=== PATIENT | male | born 1945 | race Caucasian/White ===

== ENCOUNTER 2017-10-19 14:55 | Emergency (ER) | payer MEDICARE, OTHER ==
[2017-10-19] MEDS ORDERED: Nitroglycerin 2% Ointment 1 INCH/1 GM Packet ONE (15:21)
[2017-10-19] MEDS ORDERED: Furosemide 40 MG/4 ML VIAL ONE (15:21)
[2017-10-19 15:29] LABS: Hemoglobin 9.8 g/dL (14.0-18.0); Mean Corpuscular HGB CONC 32.6 g/dL (32.0-36.0); Mean Corpuscular Hemoglobin 28.7 pg (27.0-31.0); Mean Corpuscular Volume 87.8 fL (78.0-98.0); Mean Platelet Volume 7.8 fL (7.4-10.4); Platelet Count 240 thou/uL (130-400); RBC Distribution Width 13.1 % (11.5-14.5); Red Blood Cell (RBC) Count 3.41 mill/uL (4.70-6.10); White Blood Cell (WBC) Count 5.7 thou/uL (4.8-10.8)
[2017-10-19 15:46] LABS: Band 4 % (5-11); Eosinophils 7 % (0-10); Lymphocytes 26 % (21-51); MDiff Complete? YES; Monocytes 8 % (0-10); Neutrophil 53 % (42-75); Ovalocytes SLIGHT = 2-5 cells (100X) (0-1/hpf); PLT Morphology Comment Appears Adequate; Polychromasia SLIGHT = 2-3 cells (100X) (0-2/hpf); Reactive Lymphocytes 1 % (0-10)
[2017-10-19 15:52] LABS: ALT (SGPT) 18 U/L (8-55); AST (SGOT) 24 U/L (5-34); Albumin 3.9 g/dL (3.4-4.8); Alkaline Phosphatase 99 U/L (40-150); Anion Gap 10 mmol/L (10-20); BUN (Urea Nitrogen) 15 mg/dL (8.4-25.7); Bilirubin, Total 0.5 mg/dL (0.2-1.2); CK (CPK) 38 U/L (30-200); Calc. Creatinine Clearance 0 mL/min (70-130); Calcium 9.6 mg/dL (7.8-10.44); Carbon Dioxide 31 mmol/L (23-31); Chloride 99 mmol/L (98-107); Estimated GFR-MDRD 77; Globulin 3.5 g/dL (2.4-3.5); Glucose 130 mg/dL (83-110); Lipase 77 U/L (8-78); Potassium 4.2 mmol/L (3.5-5.1); Protein, Total 7.4 g/dL (5.8-8.1); Sodium 136 mmol/L (136-145)
[2017-10-19 15:54] LABS: CKMB 1.2 ng/mL (0-6.6); Troponin I Less than 0.010 ng/mL (< 0.028)
--- NOTE | 2017-10-19 15:59 | RAD ---
PORTABLE CHEST: Date: 10/19/17 HISTORY: Dyspnea. No comparison. IMPRESSION: Mild cardiomegaly. Bibasilar infiltrates and evidence of small bilateral effusions. Mild vascular eng orgement. POS: [facility]
== END 2017-10-19 19:52 ==
LOC: ERS 14:55
DX: I11.0 Hypertensive heart disease with heart failure (principal); I50.9 Heart failure, unspecified; E78.00 Pure hypercholesterolemia, unspecified; E11.9 Type 2 diabetes mellitus without complications; I48.91 Unspecified atrial fibrillation; F32.9 Major depressive disorder, single episode, unspecified
CPT/HCPCS: 71045; 80053; 82553; 83690; 83880; 84484; 85025; 93005; 96374; J1940

== ENCOUNTER 2023-11-19 02:49 | Emergency (ER) | payer OTHER ==
[2023-11-19 03:43] LABS: #Basophils Less than 0.03 10x3/uL (0.0-0.2); %Basophils 0.3 % (0.0-1.0); %Eosinophils 3.7 % (0.0-10.0); %Lymphocytes 14.8 % (21.0-51.0); %Neutrophils 69.1 % (42.0-75.0); Hematocrit 31.9 % (42.0-52.0); Hemoglobin 10.5 g/dL (14.0-18.0); Mean Corpuscular HGB CONC 32.9 g/dL (32.0-36.0); Mean Corpuscular Hemoglobin 31.3 pg (27.0-31.0); Mean Corpuscular Volume 94.9 fL (78.0-98.0); Mean Platelet Volume 10.2 fL (7.4-10.4); Platelet Count 305 10x3/uL (130-400); RBC Distribution Width 14.4 % (11.5-14.5); Red Blood Cell (RBC) Count 3.36 mill/uL (4.70-6.10)
[2023-11-19 04:00] LABS: ALT (SGPT) 116 U/L (8-55); AST (SGOT) 37 U/L (5-34); Albumin 3.1 g/dL (3.4-4.8); Alkaline Phosphatase 207 U/L (40-110); Anion Gap 13 mmol/L (10-20); BUN (Urea Nitrogen) 18 mg/dL (8.4-25.7); Calc. Creatinine Clearance 0 mL/min (70-130); Calcium 9.4 mg/dL (7.8-10.44); Carbon Dioxide 27 mmol/L (23-31); Chloride 97 mmol/L (98-107); Estimated GFR 93; Globulin 3.8 g/dL (2.4-3.5); Glucose 183 mg/dL (83-110); Protein, Total 6.9 g/dL (5.8-8.1); Sodium 133 mmol/L (136-145)
== END 2023-11-19 07:09 | disposition home or self-care (01) ==
LOC: ERS 02:49
DX: R06.00 Dyspnea, unspecified (principal); E11.9 Type 2 diabetes mellitus without complications; I10 Essential (primary) hypertension; I48.91 Unspecified atrial fibrillation; I62.9 Nontraumatic intracranial hemorrhage, unspecified; Z55.6 Problems related to health literacy
CPT/HCPCS: 71045; 80053; 83880; 85025; 93005

== ENCOUNTER 2024-04-20 10:45 | Inpatient (IN) | payer OTHER ==
[2024-04-20 11:26] LABS: Acetaminophen Less than 10 mcg/mL (Less than 10); Alcohol Less than 10.0 mg/dL (Less than 10); Salicylate Less than 8.0 mg/dL (Less than 8.0)
[2024-04-20 11:30] LABS: #Basophils Less than 0.03 10x3/uL (0.0-0.2); %Basophils 0.3 % (0.0-1.0); %Eosinophils 1.9 % (0.0-10.0); %Lymphocytes 17.9 % (21.0-51.0); %Monocytes 13.9 % (0.0-10.0); %Neutrophils 65.6 % (42.0-75.0); Hematocrit 46.5 % (42.0-52.0); Hemoglobin 15.6 g/dL (14.0-18.0); Mean Corpuscular HGB CONC 33.5 g/dL (32.0-36.0); Mean Corpuscular Hemoglobin 30.8 pg (27.0-31.0); Mean Corpuscular Volume 91.7 fL (78.0-98.0); Mean Platelet Volume 10.6 fL (7.4-10.4); Platelet Count 236 10x3/uL (130-400); RBC Distribution Width 15.3 % (11.5-14.5); Red Blood Cell (RBC) Count 5.07 mill/uL (4.70-6.10)
[2024-04-20 11:56] LABS: ALT (SGPT) 17 U/L (8-55); AST (SGOT) 26 U/L (5-34); Albumin 4.1 g/dL (3.4-4.8); Anion Gap 19 mmol/L (10-20); BUN (Urea Nitrogen) 31 mg/dL (8.4-25.7); Bilirubin, Total 0.7 mg/dL (0.2-1.2); Calc. Creatinine Clearance 0 mL/min (70-130); Calcium 10.1 mg/dL (7.8-10.44); Carbon Dioxide 24 mmol/L (23-31); Chloride 97 mmol/L (98-107); Estimated GFR 65; Globulin 4.1 g/dL (2.4-3.5); Glucose 139 mg/dL (83-110); Magnesium 1.7 mg/dL (1.6-2.6); Potassium 4.8 mmol/L (3.5-5.1); Protein, Total 8.2 g/dL (5.8-8.1); Sodium 135 mmol/L (136-145)
[2024-04-20 12:00] LABS: Troponin I 0.016 ng/mL (< 0.028)
[2024-04-20 12:41] LABS: Bacteria/HPF None Seen HPF (None Seen); Bilirubin Negative (Negative); Blood, Urine Negative (Negative); CAUTI Indications for Culture Alt mental st,lethar; Clarity Clear (Clear); Glucose, Urine (Dipstick) Normal (Negative); Ketone, Urine Negative (Negative); Leukocyte Negative Leu/uL (Negative); Nitrite Negative (Negative); Protein, Urine (Dipstick) Negative (Neg-Trace); RBC/HPF None Seen HPF (0-3); Squamous Epithelial None Seen HPF (0-3); Urobilinogen Normal mg/dL (Less than 2); WBC/HPF 0-3 HPF (0-3); pH, Urine 6.5 (5.0-9.0)
[2024-04-20 12:44] LABS: Urine Culture Reflex No No
[2024-04-20 12:48] LABS: Amphetamine Not Detected (NotDetected); Barbiturates Screen Not Detected (NotDetected); Benzodiazepine Screen Not Detected (NotDetected); Cocaine Metabolite Screen Not Detected (NotDetected); Methadone Not Detected (NotDetected); Methamphetamine Not Detected (NotDetected); Opiate Screen Not Detected (NotDetected); Oxycodone Screen Not Detected (NotDetected); Phencyclidine (PCP) Not Detected (NotDetected); THC/Cannabinoid Screen Not Detected (NotDetected); Tricyclic Screen Not Detected (NotDetected)
[2024-04-20 12:52] LABS: Alkaline Phosphatase 125 U/L (40-110)
[2024-04-20] MEDS ORDERED: Aspirin Chewable 81 MG TAB ONE (13:57)
[2024-04-20] MEDS ORDERED: Ondansetron ODT 4 MG TAB PO PRN (14:36)
[2024-04-20] MEDS ORDERED: Ondansetron PF 4 MG/2 ML Vial IVP PRN (14:36)
[2024-04-20] MEDS ORDERED: Senokot S 8.6-50 MG TAB PO PRN (14:36)
[2024-04-20] MEDS ORDERED: hydrALAZINE 20 MG/ML VIAL SLOW IVP PRN (14:36)
[2024-04-20] MEDS ORDERED: Acetaminophen 650 MG Suppository PR PRN (14:36)
[2024-04-20] MEDS ORDERED: Calcium Carbonate 500 MG ChewTAB PO PRN (14:36)
[2024-04-20] MEDS ORDERED: Haloperidol Lactate 5 MG/ML VIAL ONE (15:11)
[2024-04-20 17:41] VITALS: BMI 18.6
[2024-04-20] MEDS: QUEtiapine 25 MG TAB PO SCH (21:21)
[2024-04-20] MEDS: Haloperidol Lactate 5 MG/ML VIAL IM SCH (22:57)
[2024-04-21] MEDS: Haloperidol Lactate 5 MG/ML VIAL SLOW IVP SCH (00:43)
[2024-04-21 08:19] LABS: #Basophils Less than 0.03 10x3/uL (0.0-0.2); %Basophils 0.3 % (0.0-1.0); %Eosinophils 1.7 % (0.0-10.0); %Lymphocytes 19.6 % (21.0-51.0); %Monocytes 12.1 % (0.0-10.0); %Neutrophils 65.9 % (42.0-75.0); Hematocrit 40.6 % (42.0-52.0); Hemoglobin 13.8 g/dL (14.0-18.0); Mean Corpuscular Hemoglobin 30.3 pg (27.0-31.0); Mean Corpuscular Volume 89.2 fL (78.0-98.0); Mean Platelet Volume 10.3 fL (7.4-10.4); Platelet Count 232 10x3/uL (130-400); RBC Distribution Width 14.8 % (11.5-14.5); Red Blood Cell (RBC) Count 4.55 mill/uL (4.70-6.10)
[2024-04-21 08:37] LABS: Anion Gap 13 mmol/L (10-20); BUN (Urea Nitrogen) 22 mg/dL (8.4-25.7); Calc. Creatinine Clearance 61 mL/min (70-130); Calcium 9.1 mg/dL (7.8-10.44); Carbon Dioxide 27 mmol/L (23-31); Chloride 100 mmol/L (98-107); Estimated GFR 90; Glucose 127 mg/dL (83-110); Potassium 3.8 mmol/L (3.5-5.1); Sodium 136 mmol/L (136-145)
[2024-04-21] MEDS: Pantoprazole 40 MG DR.TAB PO SCH (11:03)
[2024-04-21] MEDS: Atorvastatin Calcium 40 MG TAB PO SCH (11:03)
[2024-04-21] MEDS: Oxybutynin ER 5 MG TAB PO SCH (11:03)
[2024-04-21] MEDS: Aspirin 81 mg Enteric Coated Tablet PO SCH (11:03)
[2024-04-21] MEDS: Clopidogrel Bisulfate 75 MG TAB PO SCH (11:03)
[2024-04-21] MEDS: Gabapentin 100 MG CAP PO SCH ×2 (11:04→19:46)
[2024-04-21] MEDS: NIFEdipine XL 30 MG ER.TAB PO SCH (11:45)
[2024-04-21] MEDS: hydrALAZINE 25 MG TAB PO SCH (11:45)
[2024-04-21] MEDS: Lisinopril 20 MG TAB PO SCH (11:45)
[2024-04-21 12:04] VITALS: BMI 18.6
[2024-04-21] MEDS: Ciprofloxacin 0.3% Ophth Soln 2.5 ml Bottle EA EYE SCH (15:33)
[2024-04-21] MEDS: Melatonin 3 MG TAB PO SCH (19:45)
[2024-04-22 11:35] LABS: Vitamin D, 25 Hydroxy 29.9 ng/ml (> 30.0)
[2024-04-23 05:32] LABS: Anion Gap 13 mmol/L (10-20); BUN (Urea Nitrogen) 27 mg/dL (8.4-25.7); Calc. Creatinine Clearance 57 mL/min (70-130); Calcium 9.1 mg/dL (7.8-10.44); Carbon Dioxide 26 mmol/L (23-31); Chloride 100 mmol/L (98-107); Estimated GFR 87; Glucose 124 mg/dL (83-110); Magnesium 1.4 mg/dL (1.6-2.6); Potassium 3.9 mmol/L (3.5-5.1); Sodium 135 mmol/L (136-145)
[2024-04-23] MEDS: ALPRAZolam 0.25 MG TAB PO PRN (12:04)
[2024-04-24] MEDS: Acetaminophen 500 MG TAB PO PRN (08:31)
[2024-04-24] MEDS: ALPRAZolam 0.25 MG TAB PO SCH (10:32)
[2024-04-26] MEDS: Acetaminophen 325 MG TAB PO PRN (08:50)
[2024-04-28 15:56] VITALS: BP 121/65
[2024-04-28 16:34] VITALS: TEMP 97.2
== END 2024-04-28 18:19 | disposition home health service (06) | DRG 71 ==
LOC: ERS 10:45 → ERHOLD 14:57 → 2SE 16:46 → OBSVTOIN 04-21 15:49 → MSONC 04-25 12:14
PROVIDERS: ADMIT Internal Medicine; ATTEND Internal Medicine
DX: G93.41 Metabolic encephalopathy (principal); I48.20 Chronic atrial fibrillation, unspecified; I50.32 Chronic diastolic (congestive) heart failure; E78.5 Hyperlipidemia, unspecified; E11.9 Type 2 diabetes mellitus without complications; I11.0 Hypertensive heart disease with heart failure; E86.0 Dehydration; Z79.82 Long term (current) use of aspirin; Z79.899 Other long term (current) drug therapy; H01.009 Unspecified blepharitis unspecified eye, unspecified eyelid; Z98.890 Other specified postprocedural states
CPT/HCPCS: 36415; 36416; 70450; 70551; 71045; 80048; 80053; 80306; 80307; 81001; 82140; 82306; 82607; 83605; 83735; 84443; 84484; 85025; 93005; 93010; 96361; 96372; 96374; G0378; J1630

== ENCOUNTER 2024-04-29 18:28 | Inpatient (IN) | payer OTHER ==
[2024-04-29 20:01] LABS: #Basophils 0.03 10x3/uL (0.0-0.2); %Basophils 0.2 % (0.0-1.0); %Eosinophils 0.7 % (0.0-10.0); %Lymphocytes 9.5 % (21.0-51.0); %Monocytes 10.5 % (0.0-10.0); %Neutrophils 78.5 % (42.0-75.0); Hematocrit 36.8 % (42.0-52.0); Hemoglobin 12.2 g/dL (14.0-18.0); Mean Corpuscular HGB CONC 33.2 g/dL (32.0-36.0); Mean Corpuscular Hemoglobin 30.7 pg (27.0-31.0); Mean Corpuscular Volume 92.5 fL (78.0-98.0); Mean Platelet Volume 10.3 fL (7.4-10.4); Platelet Count 269 10x3/uL (130-400); RBC Distribution Width 14.7 % (11.5-14.5); Red Blood Cell (RBC) Count 3.98 mill/uL (4.70-6.10)
[2024-04-29 20:19] LABS: INR-International Normal Ratio 1.1; PTT 27.9 sec (22.9-36.1); Prothrombin Time 14.5 sec (12.0-14.7)
[2024-04-29 20:24] LABS: ALT (SGPT) 25 U/L (8-55); AST (SGOT) 30 U/L (5-34); Albumin 3.6 g/dL (3.4-4.8); Alkaline Phosphatase 104 U/L (40-110); Anion Gap 16 mmol/L (10-20); BUN (Urea Nitrogen) 36 mg/dL (8.4-25.7); Bilirubin, Total 0.5 mg/dL (0.2-1.2); CK (CPK) 65 U/L (30-200); Calc. Creatinine Clearance 0 mL/min (70-130); Carbon Dioxide 24 mmol/L (23-31); Chloride 97 mmol/L (98-107); Estimated GFR 92; Globulin 3.5 g/dL (2.4-3.5); Glucose 183 mg/dL (83-110); Magnesium 1.4 mg/dL (1.6-2.6); Potassium 3.9 mmol/L (3.5-5.1); Protein, Total 7.1 g/dL (5.8-8.1); Sodium 133 mmol/L (136-145)
[2024-04-29] MEDS ORDERED: niCARdipine 25 MG/10 ML SDV ONE (21:03)
[2024-04-29] MEDS ORDERED: levETIRAcetam 500 MG (5 mL) VIAL ONE (21:03)
[2024-04-29] MEDS ORDERED: Acetaminophen 500 MG TAB ONE (21:46)
[2024-04-29] MEDS ORDERED: Ondansetron PF 4 MG/2 ML Vial IVP PRN (22:00)
[2024-04-29] MEDS ORDERED: Acetaminophen 325 MG TAB PO PRN (22:00)
[2024-04-29] MEDS ORDERED: Ondansetron ODT 4 MG TAB SL PRN (22:00)
[2024-04-29] MEDS ORDERED: Dextrose 5% in Water 1,000 ML IV PRN (22:14)
[2024-04-29] MEDS ORDERED: Glucagon 1 MG/ML KIT IM PRN (22:14)
[2024-04-29] MEDS ORDERED: Dextrose 50% Abboject 50 ML SYRINGE SLOW IVP PRN (22:14)
[2024-04-29 23:27] VITALS: BMI 19.8
[2024-04-30 02:49] LABS: #Basophils Less than 0.03 10x3/uL (0.0-0.2); #Eosinophils Less than 0.03 10x3/uL (0.0-0.7); %Basophils 0.2 % (0.0-1.0); %Eosinophils 0.2 % (0.0-10.0); %Lymphocytes 9.9 % (21.0-51.0); %Monocytes 9.7 % (0.0-10.0); %Neutrophils 79.5 % (42.0-75.0); Hematocrit 31.2 % (42.0-52.0); Hemoglobin 10.4 g/dL (14.0-18.0); Mean Corpuscular HGB CONC 33.3 g/dL (32.0-36.0); Mean Corpuscular Hemoglobin 30.9 pg (27.0-31.0); Mean Corpuscular Volume 92.6 fL (78.0-98.0); Mean Platelet Volume 10.1 fL (7.4-10.4); Platelet Count 260 10x3/uL (130-400); RBC Distribution Width 14.8 % (11.5-14.5); Red Blood Cell (RBC) Count 3.37 mill/uL (4.70-6.10)
[2024-04-30 03:38] LABS: Anion Gap 11 mmol/L (10-20); BUN (Urea Nitrogen) 32 mg/dL (8.4-25.7); Calc. Creatinine Clearance 74 mL/min (70-130); Calcium 8.7 mg/dL (7.8-10.44); Carbon Dioxide 26 mmol/L (23-31); Chloride 100 mmol/L (98-107); Estimated GFR 93; Glucose 153 mg/dL (83-110); Potassium 4.3 mmol/L (3.5-5.1); Sodium 133 mmol/L (136-145)
[2024-04-30] MEDS: Famotidine/PF 20 mg/2ml Vial SLOW IVP SCH (09:11)
[2024-04-30] MEDS: levETIRAcetam 500 MG (5 mL) VIAL SLOW IVP SCH (09:11)
[2024-04-30] MEDS: hydrALAZINE 20 MG/ML VIAL SLOW IVP PRN (09:48)
[2024-04-30] MEDS: Lactated Ringer's 1,000 ML IV SCH (11:19)
[2024-04-30] MEDS: Labetalol HCl 100 MG/20 ML VIAL SLOW IVP PRN (15:10)
[2024-05-01] MEDS: niCARdipine 25 MG in Sodium Chloride 0.9% 250 ML 250 ML IVPB SCH ×2 (04:07→08:55)
[2024-05-01] MEDS: hydrALAZINE 20 MG/ML VIAL SLOW IVP PRN (14:51)
[2024-05-01] MEDS: Polyvinyl Alcohol 1.4%/Povidone 0.6% Opth Drops EA EYE SCH (20:32)
[2024-05-02] MEDS: Labetalol HCl 100 MG/20 ML VIAL SLOW IVP PRN (05:05)
[2024-05-02] MEDS: Insulin Lispro 100 UNIT/ML 10 ML VIAL SC PRN (08:20)
[2024-05-02] MEDS: NIFEdipine XL 30 MG ER.TAB PO SCH (08:25)
[2024-05-02] MEDS: Lisinopril 20 MG TAB PER TUBE SCH (08:25)
[2024-05-02] MEDS: hydrALAZINE 25 MG TAB PER TUBE SCH (08:25)
[2024-05-02 10:12] LABS: Hemoglobin A1c 5.8 % (4.0-6.0); Magnesium 1.5 mg/dL (1.6-2.6)
[2024-05-02] MEDS: Magnesium Sulfate In Water 4 GM in Premix 1 BAG IVPB SCH (11:00)
[2024-05-02 15:02] LABS: Bilirubin Negative (Negative); Blood, Urine Trace (Negative); CAUTI Indications for Culture Alt mental st,lethar; Clarity Clear (Clear); Glucose, Urine (Dipstick) 150 mg/dL (Negative); Ketone, Urine Negative (Negative); Leukocyte 75 Leu/uL (Negative); Nitrite Negative (Negative); Protein, Urine (Dipstick) 20 mg/dL (Neg-Trace); Specific Gravity, Urine 1.011 (1.002-1.036); Squamous Epithelial None Seen HPF (0-3); Urobilinogen Normal mg/dL (Less than 2); pH, Urine 7.5 (5.0-9.0)
[2024-05-02 15:03] LABS: Bacteria/HPF 1+ HPF (None Seen); Urine Culture Reflex No No
[2024-05-02] MEDS: Vancomycin 1.5 GRAM/300 ML BAG 1.5 GM in Premix 1 BAG IVPB SCH (20:34)
[2024-05-02] MEDS: Piperacillin/Tazobactam 3.375 GM in Sodium Chloride 0.9% 100 ML IVPB SCH (20:39)
[2024-05-02] MEDS: Piperacillin/Tazobactam 3.375 GM VIAL ONE (21:11)
[2024-05-02] MEDS: Atorvastatin Calcium 40 MG TAB PER TUBE SCH (21:20)
[2024-05-02 23:02] LABS: Actual Bicarbonate (HCO3v) 26.9 mEq/L (22-28); Base Excess 3.2 mEq/L (-2.0 to +3.0); Calcium, Ionized (venous) 1.19 mmol/L (1.16-1.32); Chloride (VBG) 103 mmol/L (98-106); Hematocrit-VBG 38 % (42.0-52.0); Hemoglobin (Hb) 12.8 g/dL (12.6-17.4); Potassium (VBG) 3.86 mmol/L (3.70-5.30); Sodium 143 mmol/L (133-146); pH (venous) 7.469 (7.32-7.43)
[2024-05-03] MEDS: Piperacillin/Tazobactam 3.375 GM in Sodium Chloride 0.9% 100 ML IVPB SCH (00:37)
[2024-05-03] MEDS: Acetaminophen 325 MG TAB PER TUBE PRN (02:08)
[2024-05-03 04:10] LABS: #Basophils 0.03 10x3/uL (0.0-0.2); #Eosinophils Less than 0.03 10x3/uL (0.0-0.7); %Basophils 0.2 % (0.0-1.0); %Eosinophils 0.1 % (0.0-10.0); %Lymphocytes 7.6 % (21.0-51.0); %Monocytes 9.9 % (0.0-10.0); %Neutrophils 81.7 % (42.0-75.0); Hematocrit 31.7 % (42.0-52.0); Hemoglobin 10.7 g/dL (14.0-18.0); Mean Corpuscular HGB CONC 33.8 g/dL (32.0-36.0); Mean Corpuscular Hemoglobin 30.7 pg (27.0-31.0); Mean Corpuscular Volume 91.1 fL (78.0-98.0); Mean Platelet Volume 10.5 fL (7.4-10.4); Platelet Count 278 10x3/uL (130-400); RBC Distribution Width 15.4 % (11.5-14.5); Red Blood Cell (RBC) Count 3.48 mill/uL (4.70-6.10)
[2024-05-03 04:45] LABS: Vancomycin, Random 19.5 ug/mL (See Comment)
[2024-05-03 04:47] LABS: Anion Gap 13 mmol/L (10-20); BUN (Urea Nitrogen) 30 mg/dL (8.4-25.7); Calc. Creatinine Clearance 71 mL/min (70-130); Calcium 9.3 mg/dL (7.8-10.44); Carbon Dioxide 25 mmol/L (23-31); Chloride 110 mmol/L (98-107); Estimated GFR 93; Glucose 158 mg/dL (83-110); Magnesium 2.4 mg/dL (1.6-2.6); Potassium 3.8 mmol/L (3.5-5.1); Sodium 144 mmol/L (136-145)
[2024-05-03] MEDS: Vancomycin 1 GM in Premix 1 BAG IVPB SCH (05:57)
[2024-05-03] MEDS: Piperacillin/Tazobactam 3.375 GM VIAL ONE ×4 (09:23→22:53)
[2024-05-03] MEDS: Metoprolol Tartrate 5 MG (5 mL) VIAL IVP SCH (11:35)
[2024-05-03 15:11] VITALS: BMI 19.4
[2024-05-03] MEDS: Vancomycin HCl 750 MG in Sodium Chloride 0.9% 250 ML 250 ML IVPB SCH (17:26)
[2024-05-03] MEDS: Dextrose 5 %-0.45 % NaCl 1,000 ML IV SCH (19:56)
[2024-05-04 03:53] LABS: #Basophils 0.03 10x3/uL (0.0-0.2); %Basophils 0.3 % (0.0-1.0); %Eosinophils 0.8 % (0.0-10.0); %Lymphocytes 11.3 % (21.0-51.0); %Monocytes 10.5 % (0.0-10.0); %Neutrophils 76.6 % (42.0-75.0); Hematocrit 34.9 % (42.0-52.0); Hemoglobin 11.4 g/dL (14.0-18.0); Mean Corpuscular HGB CONC 32.7 g/dL (32.0-36.0); Mean Corpuscular Hemoglobin 30.6 pg (27.0-31.0); Mean Corpuscular Volume 93.8 fL (78.0-98.0); Mean Platelet Volume 10.5 fL (7.4-10.4); Platelet Count 291 10x3/uL (130-400); RBC Distribution Width 15.2 % (11.5-14.5); Red Blood Cell (RBC) Count 3.72 mill/uL (4.70-6.10)
[2024-05-04 04:20] LABS: Anion Gap 13 mmol/L (10-20); BUN (Urea Nitrogen) 23 mg/dL (8.4-25.7); Calc. Creatinine Clearance 78 mL/min (70-130); Calcium 9.1 mg/dL (7.8-10.44); Carbon Dioxide 26 mmol/L (23-31); Chloride 109 mmol/L (98-107); Estimated GFR 95; Glucose 152 mg/dL (83-110); Magnesium 1.8 mg/dL (1.6-2.6); Potassium 3.7 mmol/L (3.5-5.1); Sodium 144 mmol/L (136-145)
[2024-05-04] MEDS ORDERED: Lorazepam 2 MG/ML VIAL SLOW IVP PRN (10:29)
[2024-05-04] MEDS: Morphine 2 MG/ML VIAL SLOW IVP PRN (13:26)
[2024-05-05 04:27] LABS: #Basophils 0.04 10x3/uL (0.0-0.2); %Basophils 0.4 % (0.0-1.0); %Eosinophils 2.3 % (0.0-10.0); %Lymphocytes 11.4 % (21.0-51.0); %Monocytes 11.2 % (0.0-10.0); %Neutrophils 74.3 % (42.0-75.0); Hematocrit 36.1 % (42.0-52.0); Hemoglobin 11.7 g/dL (14.0-18.0); Mean Corpuscular HGB CONC 32.4 g/dL (32.0-36.0); Mean Corpuscular Hemoglobin 30.7 pg (27.0-31.0); Mean Corpuscular Volume 94.8 fL (78.0-98.0); Mean Platelet Volume 10.6 fL (7.4-10.4); Platelet Count 296 10x3/uL (130-400); RBC Distribution Width 14.9 % (11.5-14.5); Red Blood Cell (RBC) Count 3.81 mill/uL (4.70-6.10)
[2024-05-05 04:48] LABS: Anion Gap 12 mmol/L (10-20); BUN (Urea Nitrogen) 30 mg/dL (8.4-25.7); Calc. Creatinine Clearance 80 mL/min (70-130); Carbon Dioxide 26 mmol/L (23-31); Chloride 113 mmol/L (98-107); Estimated GFR 96; Glucose 106 mg/dL (83-110); Magnesium 1.8 mg/dL (1.6-2.6); Sodium 147 mmol/L (136-145)
[2024-05-05 04:53] LABS: Vancomycin, Random 18.1 ug/mL (See Comment)
[2024-05-05] MEDS: Vancomycin HCl 750 MG VIAL ONE (06:53)
[2024-05-05] MEDS: cloNIDine 0.1mg/24 Hour PATCH TD SCH (12:22)
[2024-05-05] MEDS: Polyvinyl Alcohol 1.4%/Povidone 0.6% Opth Drops EA EYE SCH (15:22)
[2024-05-05] MEDS: Famotidine/PF 20 mg/2ml Vial SLOW IVP SCH (20:47)
[2024-05-05 21:16] VITALS: TEMP 98.2
[2024-05-06 05:27] LABS: #Basophils 0.04 10x3/uL (0.0-0.2); %Basophils 0.4 % (0.0-1.0); %Eosinophils 4.2 % (0.0-10.0); %Lymphocytes 8.7 % (21.0-51.0); %Neutrophils 76.3 % (42.0-75.0); Hematocrit 37.5 % (42.0-52.0); Mean Corpuscular Hemoglobin 30.7 pg (27.0-31.0); Mean Corpuscular Volume 95.9 fL (78.0-98.0); Mean Platelet Volume 10.3 fL (7.4-10.4); Platelet Count 279 10x3/uL (130-400); RBC Distribution Width 14.7 % (11.5-14.5); Red Blood Cell (RBC) Count 3.91 mill/uL (4.70-6.10)
[2024-05-06 05:38] LABS: Anion Gap 11 mmol/L (10-20); BUN (Urea Nitrogen) 28 mg/dL (8.4-25.7); Calc. Creatinine Clearance 83 mL/min (70-130); Carbon Dioxide 27 mmol/L (23-31); Chloride 115 mmol/L (98-107); Estimated GFR 97; Glucose 124 mg/dL (83-110); Magnesium 1.8 mg/dL (1.6-2.6); Potassium 3.5 mmol/L (3.5-5.1); Sodium 149 mmol/L (136-145)
[2024-05-06] MEDS ORDERED: Morphine 2 MG/ML VIAL SLOW IVP SCH (09:45)
[2024-05-06 17:54] VITALS: BP 149/87
== END 2024-05-06 10:55 | disposition home or self-care (01) | DRG 82 ==
LOC: ERS 18:28 → UNDOADMIN 21:44 → CCU 21:44 → 2SE 05-02 16:30 → MSONC 05-05 16:03
PROVIDERS: ADMIT Surgery; ATTEND Surgery
PROC: 6A550Z2 Pheresis of Platelets, Single (ICD-10-PCS; 2024-04-29)
PROC: XX20X89 Monitoring of Brain Electrical Activity, Computer-aided Detection and Notification, New Technology Group 9 (ICD-10-PCS; principal; 2024-05-02)
DX: S06.5XAA Traumatic subdural hemorrhage with loss of consciousness status unknown, initial encounter (principal); G93.41 Metabolic encephalopathy; J69.0 Pneumonitis due to inhalation of food and vomit; E87.1 Hypo-osmolality and hyponatremia; W18.30XA Fall on same level, unspecified, initial encounter; S06.6XAA Traumatic subarachnoid hemorrhage with loss of consciousness status unknown, initial encounter; E78.5 Hyperlipidemia, unspecified; E11.9 Type 2 diabetes mellitus without complications; I50.9 Heart failure, unspecified; I11.0 Hypertensive heart disease with heart failure; Z79.82 Long term (current) use of aspirin; Z79.899 Other long term (current) drug therapy; F32.A Depression, unspecified; I48.91 Unspecified atrial fibrillation; Z98.890 Other specified postprocedural states; Z51.5 Encounter for palliative care; Z66 Do not resuscitate; R40.2142 Coma scale, eyes open, spontaneous, at arrival to emergency department; R40.2362 Coma scale, best motor response, obeys commands, at arrival to emergency department; R40.2242 Coma scale, best verbal response, confused conversation, at arrival to emergency department; R40.2412 Glasgow coma scale score 13-15, at arrival to emergency department
CPT/HCPCS: 36415; 36416; 36430; 70450; 70486; 71045; 72125; 74018; 80048; 80053; 80202; 81001; 82550; 82805; 83036; 83605; 83735; 84484; 85025; 85610; 85730; 86850; 86870; 86880; 86900; 86901; 86905; 86922; 87040; 87081; 95705; 96365; G0390; J0360; J1815; J1953; J2272; J2543; J3370; J3475; J3490; J7042; J7050; J7120; P9035